=== PATIENT | male | born 1965 | race Caucasian/White ===

== ENCOUNTER 2021-07-07 14:59 | Emergency (ER) | payer OTHER ==
[~2021-07-07] VITALS: Ht 185.4 cm; Wt 102.1 kg
[2021-07-07 15:32] VITALS: BP 135/87
--- NOTE | 2021-07-07 15:35 | NUR ---
TENT 1.
--- NOTE | 2021-07-07 16:04 | NUR ---
X-Ray at bedside.
[2021-07-07] MEDS ORDERED: KETOROLAC 15 MG/ML VIAL IVP ONE (16:05)
--- NOTE | 2021-07-07 16:25 | NUR ---
Blood for labwork drawn from phleb. Patient tolerated.
--- NOTE | 2021-07-07 16:35 | NUR ---
PT AMBULATED TO BED 10
--- NOTE | 2021-07-07 16:35 | NUR ---
55 Y/O M BIB SELF C/O COUGH,PENA, BODY ACHE, MID CHEST PAIN, N/V/D X 4 DAYS. PT STATES PAIN 5/10. A&O X 4, STEADY GAIT, BOWEL SOUNDS PRESENT 4 QUAD, EVEN AND UNLABORED BREATHING, PT DOES NOT APPEAR TO BE IN DISTRESS AT THIS TIME. PMH: ASTHMA NKA
[2021-07-07 17:04] LABS: ALBUMIN 3.8 g/dL (3.4-5.0); CARBON DIOXIDE 21.2 mmol/L (21-32); POTASSIUM 3.2 mmol/L (3.5-5.1); TOTAL BILIRUBIN 0.4 mg/dL (0.0-1.0)
[2021-07-07] MEDS ORDERED: POTASSIUM CHLORIDE 10 MEQ TABER PO ONE (17:25)
[2021-07-07 17:52] LABS: BASOPHILS % (AUTO) 0.4 % (0.0-2.0); EOSINOPHILS # (AUTO) 0.3 K/uL (0-0.4); EOSINOPHILS % (AUTO) 4.8 % (0.0-4.0); HEMATOCRIT 56.1 % (36-52); LYMPHOCYTES # (AUTO) 2.2 K/uL (2.0-11.5); LYMPHOCYTES % (AUTO) 36.1 % (20.5-51.1); MEAN CORPUSCULAR HEMOGLOBIN 31 pg (27-31); MEAN CORPUSCULAR HGB CONC 34 g/dL (33-37); MEAN CORPUSCULAR VOLUME 88.8 fL (80-94); MONOCYTES # (AUTO) 0.6 K/uL (0.8-1.0); MONOCYTES % (AUTO) 9.8 % (1.7-9.3); NEUTROPHILS % (AUTO) 48.9 % (42.2-75.2); PLATELET COUNT (AUTO) 273 K/uL (140-450); RED BLOOD CELL COUNT(AUTO) 6.32 MIL/uL (4.20-6.10); RED CELL DISTRIBUTION WIDTH 14.1 % (11.6-13.7); WHITE BLOOD COUNT (AUTO) 6.2 K/uL (4.8-10.8)
[2021-07-07 17:57] LABS: HEMOGLOBIN 19.3 g/dL (12.0-18.0)
--- NOTE | 2021-07-07 18:00 | NUR ---
CRITICAL LAB VALUE HEMOGLOBIN - 19.3. AWARE.
[2021-07-07 19:07] VITALS: BP 134/94
--- NOTE | 2021-07-07 19:08 | NUR ---
PT LEFT WITHOUT DC PAPERWORK. IV DISCONTINUED.
== END 2021-07-07 19:07 | disposition home or self-care (01) ==
LOC: MED 14:59
DX: B34.9 Viral infection, unspecified (principal); E87.6 Hypokalemia; J45.909 Unspecified asthma, uncomplicated; F17.210 Nicotine dependence, cigarettes, uncomplicated; Z20.822 Contact with and (suspected) exposure to COVID-19
CPT/HCPCS: 36415; 71045; 80053; 83880; 84484; 85025; 87426; 87804; 93005; 96374; 99285; J1885

== ENCOUNTER 2021-11-08 17:33 | Emergency (ER) | payer OTHER ==
[~2021-11-08] VITALS: Ht 185.4 cm; Wt 102.5 kg
[2021-11-08 17:39] VITALS: BP 135/79
[2021-11-08] MEDS ORDERED: KETOROLAC 30 MG/ML VIAL IM ONE (18:20)
--- NOTE | 2021-11-08 19:00 | NUR ---
56 y/o male bib self from home, c/o low back pain radiates up to neck for 3 days. denies injury, trauma, over exertion or fall. denies nausea, vomiting, diarrhea. skin is pink/warm/dry. a&o x4 with even and steady gait. lungs clear bl, heart rate even and regular. pt denies dysuria, hematuria, urinary frequency or retention, or anyone sick in the household with the same symptoms. pt denies any fever, cp, sob, or cough at this time. pt states pain is 10/10 at this time. patient positioned for comfort. hob elevated. bed down. ermd made aware of pt. pmh: denies nka med: denies
[2021-11-08] MEDS ORDERED: NAPR-1704 PO (19:06)
[2021-11-08 19:28] VITALS: BP 135/79
--- NOTE | 2021-11-08 19:29 | NUR ---
Patient discharged with v/s stable. Written and verbal after care instructions given and explained. Patient alert, oriented and verbalized understanding of instructions. Ambulatory with steady gait. All questions addressed prior to discharge. ID band removed. Patient advised to follow up with PMD. Rx of naproxen (sent) given. Patient educated on indication of medication including possible reaction and side effects. Opportunity to ask questions provided and answered.
== END 2021-11-08 19:29 | disposition home or self-care (01) ==
LOC: MED 17:33
DX: S39.012A Strain of muscle, fascia and tendon of lower back, initial encounter (principal); F17.210 Nicotine dependence, cigarettes, uncomplicated; J45.909 Unspecified asthma, uncomplicated; Z79.899 Other long term (current) drug therapy; X58.XXXA Exposure to other specified factors, initial encounter; Y93.89 Activity, other specified; Y92.89 Other specified places as the place of occurrence of the external cause; Y99.8 Other external cause status
CPT/HCPCS: 72100; 81002; 96372; 99283; J1885